=== PATIENT | female | born 1965 | race Caucasian/White ===

== ENCOUNTER 2019-03-03 13:42 | Outpatient (CLI) | payer BC ==
--- NOTE | 2019-03-06 15:22 | Mammography Report ---
Reason: SCREENING MAMMOGRAM Procedure Date: 03/03/2019 Accession Number: [id number] / [id number] Procedure: PATTIE - Screening Mammo w/Maykel CPT Code: FULL RESULT: EXAM: Screening Mammo w/Maykel DATE: 03/03/2019 2:30 PM CLINICAL HISTORY: Routine screening TECHNIQUE: (B) - Bilateral CC and MLO views were obtained. COMPARISON: 05/20/2016, 11/24/2014 PARENCHYMAL PATTERN: (A) - The breasts demonstrate scattered fibroglandular densities bilaterally. FINDINGS: There has been no significant interval change. There are no suspicious masses, calcifications, or areas of distortion. IMPRESSION: Negative examination. BI-RADS category 1. RECOMMENDATION: (ANNUAL) - Recommend routine annual screening mammography. BI-RADS CATEGORY: (1) - Negative. STANDARD QUALIFYING STATEMENTS: 1. This examination was not reviewed with the aid of Computer-Aided Detection (CAD). 2. A negative or benign imaging report should not preclude biopsy if clinically suspicious findings are present. 3. Dense breasts may obscure an underlying neoplasm. 4. This examination was reviewed with the aid of 3D breast imaging (tomosynthesis).
== END 2019-03-03 13:43 | disposition home or self-care (01) ==
LOC: DI 13:42
PROVIDERS: ATTEND Family Medicine
DX: Z12.31 Encounter for screening mammogram for malignant neoplasm of breast (principal)
CPT/HCPCS: 77063; 77067

== ENCOUNTER 2020-07-09 10:58 | Outpatient (CLI) | payer BC ==
[2020-07-09] MEDS ORDERED: IOVERSOL 320 100 ML VIAL IVP ONE ×2 (11:14→15:26)
[2020-07-09] MEDS ORDERED: IOVERSOL 320 50 ML VIAL ONE (11:14)
[2020-07-09 11:32] LABS: ALBUMIN 3.7 g/dL (3.2-5.5); ALBUMIN/GLOBULIN RATIO 0.8 (1.0-2.2); BILIRUBIN,TOTAL 0.2 mg/dL (0.2-1.0); CREATININE 0.6 mg/dL (0.4-1.0); TOTAL PROTEIN 8.2 g/dL (6.7-8.2)
--- NOTE | 2020-07-09 12:45 | CT Report ---
PROCEDURE: Abdomen/Pelvis W INDICATIONS: DIARRHEA CONTRAST: IV CONTRAST: Optiray 320 ml: 100 PO CONTRAST: Optiray 320 ml50 TECHNIQUE: After the administration of nonionic contrast, 5 mm thick sections acquired from the diaphragms to th e symphysis. 5 mm thick coronal and sagittal reformats were acquired. For radiation dose reduction, the following was used: automated exposure control, adjustment of mA and/or kV according to patient size. COMPARISON: Prior similar CT 12/02/2015.. FINDINGS: Image quality: Excellent. ABDOMEN: Lung bases: Lung bases are clear. Heart size is normal. Solid organs: Liver is normal in size and enhancement. Apparent prior splenectomy. Gallbladder appe ars normal Biliary system is non dilated. Pancreas enhances normally. No adrenal nodules. Kidneys demonstrate normal size and enhancement, without hydronephrosis. Peritoneum and bowel: Bowel loops demonstrate normal wall thickness and caliber. No free fluid or a ir. Nodes and vessels: No retroperitoneal or mesenteric adenopathy by size criteria. Aorta and inferior vena cava are normal in size. Miscellaneous: No ventral hernias. PELVIS: Genitourinary: Bladder wall thickness is normal. Apparent prior hysterectomy. Miscellaneous: No inguinal hernias or adenopathy. Bones: No suspicious bony lesions. No vertebral body compression fractures. IMPRESSION: Prior hysterectomy and splenectomy. No sign of colitis or diverticulitis. A source of pe rsistent diarrhea is not found. Reviewed by: Houston Wasserman MD on 07/09/2020 12:44 PM PDT Approved by: Houston Wasserman MD on 07/09/2020 12:44 PM PDT Station ID: [id number]
[2020-07-09] MEDS ORDERED: IOVERSOL 320 50 ML VIAL PO ONE (15:26)
== END 2020-07-09 10:59 | disposition home or self-care (01) ==
LOC: DI 10:58
PROVIDERS: ATTEND Nurse Practitioner Family
DX: R19.7 Diarrhea, unspecified (principal); I10 Essential (primary) hypertension; Z90.81 Acquired absence of spleen; Z90.710 Acquired absence of both cervix and uterus
CPT/HCPCS: 36415; 74177; 80053; Q9967

== ENCOUNTER 2020-12-24 13:34 | Outpatient (CLI) | payer BC | END 2020-12-24 13:35 | disposition home or self-care (01) | LOC: RT 13:34 | PROVIDERS: ATTEND Nurse Practitioner Family | DX: R06.00 Dyspnea, unspecified (principal) | CPT/HCPCS: 94010 ==